=== PATIENT | female | born 1955 | race Hispanic/Latino ===

== ENCOUNTER 2017-02-27 12:50 | Outpatient (CLI) | payer BC ==
--- NOTE | 2017-02-27 14:34 | Mammography Report ---
BONE DENSITY STUDY: DEFINITIONS: BMD = Bone Mineral Density T-score = BMD related to mean peak bone mass of young adult (mean expressed in Standard Deviation) Z-score = Age matched BMD expressed in SD World Health Organization (WHO) Diagnostic Criteria Normal T-score > -1 SD Osteopenia T-score between -1 and -2.4 SD Osteoporosis T-score -2.5 SD or below FINDINGS: The weighted average BMD of L1, L2, and L4 is 0.839 with a T-score of -1.8. It is of note that there is a significant levoscoliosis. The weighted average BMD of the left hip is 0.624 with a T-score of -2.6. The images from 2010 are not available for comparison. The report would indicate a significant improvement in the bone density of the lumbar spine reported as being 0.795 but worsening density in the left hip reported as being0.673. IMPRESSION: The patient's average T-score is diagnostic for osteoporosis and high relative risk for fracture. NOTE: BMD is not the only risk factor for fracture; also consider factors such as the patient's age, risk of falling, previous osteoporotic fracture, family history of osteoporotic fractures, current smoker, and low body weight. Wilcox's triangle is a region of interest in femur, predominantly of trabecular bone. It is not a true anatomic site, and [facility] does not recommend its use clinically.
--- NOTE | 2017-02-27 16:17 | XRay Report ---
RIGHT HIP RADIOGRAPHS INDICATION: Hip pain. COMPARISON: None similar. FINDINGS: An AP pelvic radiograph with frog-leg projection of the right hip demonstrate intact articulation. Imaged bilateral SI and hip joints appear intact. Osteopenia. Lower lumbar degenerative changes/scoliosis incompletely imaged. Nonobstructive bowel gas pattern. CONCLUSION: No acute radiographic abnormality with few other findings, as above. Thank you for the opportunity to participate in this patient's care.
== END 2017-02-27 12:51 | disposition home or self-care (01) ==
LOC: SPVWC 12:50
PROVIDERS: ATTEND Family Medicine
DX: M81.0 Age-related osteoporosis without current pathological fracture (principal); M25.551 Pain in right hip; M41.86 Other forms of scoliosis, lumbar region; M85.88 Other specified disorders of bone density and structure, other site
CPT/HCPCS: 77080